=== PATIENT | female | born 1945 | race Caucasian/White ===

== ENCOUNTER → 2017-03-07 | Outpatient (CLI) | payer OTHER | END | disposition home or self-care (01) | LOC: C.LABSPEC 12:00 | PROVIDERS: ATTEND Internal Medicine | DX: Z12.11 Encounter for screening for malignant neoplasm of colon (principal) ==

== ENCOUNTER → 2017-04-04 | Outpatient (CLI) | payer OTHER | END | disposition home or self-care (01) | LOC: C.MAMM 11:13 | PROVIDERS: ATTEND Internal Medicine | DX: M85.851 Other specified disorders of bone density and structure, right thigh (principal); M85.852 Other specified disorders of bone density and structure, left thigh ==

== ENCOUNTER 2021-11-25 18:39 | Observation (INO) ==
[2021-11-25] MEDS ORDERED: SODIUM CHLORIDE 0.9% 500 ML IV ONE ×3 (18:55→20:49)
--- NOTE | 2021-11-25 18:57 | Emergency Department Note ---
Impression & Plan Atrial fibrillation with RVR, Palpitations, New onset atrial fibrillation, Low serum potassium level ED Provider Note NAME: SAMANTHA BHATTI AGE: 76 SEX: F ARRIVES VIA: Walk-In INFORMANT: Patient ED PROVIDER(S): Jason Chanel MD CHIEF COMPLAINT: Palpitations PLAN: Disposition: Admit MEDICAL DECISION MAKING: The patient is a pleasant 76-year-old woman with a past medical history of IBS who presents to the emergency department for evaluation of palpitations which she reports she noticed around 2 PM this afternoon and took her blood pressure and noticed it was more elevated than usual in the 150s. She denies any significant shortness of breath, lightheadedness, nausea or vomiting. She reports that she chronically was having loose stools which did improve with Metamucil per her doctor's instructions but every now and then depending on what she eats this may recur. She tries to keep up with nutrition and hydration but admits that she probably should've had more fluids today. She reports she did have a cough that began in October which has persisted mildly. She was tested for COVID-19 a week ago after she was informed that she may have had a COVID-19 exposure. She denies any chest pain or abdominal pain. On arrival the patient is relatively well appearing but no acute distress, afebrile with heart rate irregular ranging from the 100s-150s. Vital signs are otherwise stable. The patient appears clinically dry. Exam is otherwise unremarkable. EKG demonstrates atrial fibrillation with RVR. Chest x-ray negative for acute cardiopulmonary process. WBC, H/H and platelets within normal limits. Chemistry without metabolic ac idosis. BUN is 19 consistent with the patient's clinical dry appearance. Electrolytes and LFTs are unremarkable. Troponin negative/undetectable. TSH within normal limits. COVID-19 PCR was negative. Influenza and RSV PCR also negative. Patient was treated with IV fluid hydration with heart that did i mprove somewhat from the 140-150s to the 130s. She was then given 2.5 mg of IV Lopressor followed by an additional 2.5 mg shortly thereafter after minimal response. Her heart rate then did improve to the 100s-110s. [id number] score is 3 and so anticoagulation is warranted. Patient denies any history of GI bleeding or bleeding otherwise. Given the patient's new onset atrial fibrillation the patient was in agreement with plan for admission for further management. Will defer anticoagulation to admitting team. Case was discussed with Dr. Kang [facility] hospitalist, who will evaluate the patient for admission. Triage Nursing notes reviewed and agree them. Prior medical records reviewed Vital Signs: reviewed and remarkable for tachycardia. Differential diagnosis: Premature contractions, electrolyte abnormality, cardiac dysrhythmia, thyroid dysfunction, pulmonary embolism, infection, gastrointestinal, as well as other pathologies. ER treatment provided: See below. Diagnostics interpreted by me: ECG 185: Atrial fibrillation with RVR, 127 bpm, nonspecific ST abnormality, no overt ST elevation or depression, QTC 447, QRS 80. ECG 2126: Atrial fibrillation with RVR, 106 bpm, no ectopy, improved ST abnorma lity, no overt ST elevation or depression, QTC 379, QRS 80. Cardiac Monitoring: An order for continuous cardiac monitoring was placed and demonstrated atrial fibrillation, 150 bpm, no ectopy. Laboratory studies: See below Imaging studies: See below Consultation(s): Case was discussed with Dr. Kang [facility] hospitalist, who will evaluate the patient for admission. HPI: The patient is a pleasant 76-year-old woman with a past medical history of IBS who presents to the emergency department for evaluation of palpitations which she reports she noticed around 2 PM this afternoon and took her blood pressure and noticed it was more elevated than usual in the 150s. She denies any significant shortness of breath, lightheadedness, nausea or vomiting. She reports that she chronically was having loose stools which did improve with Metamucil per her doctor's instructions but every now and then depending on what she eats this may recur. She tries to keep up with nutrition and hydration but admits that she probably should've had more fluids today. She reports she did have a cough that began in October which has persisted mildly. She was tested for COVID-19 a week ago after she was informed that she may have had a COVID-19 exposure. She denies any chest pain or abdominal pain. ROS: See above HPI for pertinent positives & negatives. A total of 10 systems reviewed and were otherwise negative. PAST MEDICAL HISTORY:See Below PAST SURGICAL HISTORY:See Below FAMILY HISTORY:See Below SOCIAL HISTORY:See Below HOME MEDICATIONS:See Below ALLERGIES:See Below VITALS:See Below PHYSICAL EXAMINATION: GENERAL: Awake, alert, relatively well-appearing, in no distress HENT: Normocephalic, atraumatic. Oropharynx with dry mucous membranes and otherwise unremarkable. EYES: Normal conjunctiva. Sclera non-icteric. NECK: Supple. No nuchal rigidity. FROM. No JVD. RESPIRATORY: Clear to auscultation. CARDIAC: Tachycardic rate, irregular rhythm. Extremities warm and well perfused. Pulses equal. ABDOMEN: Soft, non-distended. No tenderness to palpation. No rebound or guarding. No masses. RECTAL: Deferred. MUSCULOSKELETAL: Chest examination reveals no tenderness. The back is symmetrical on inspection without obvious abnormality. There is no CVA tenderness to palpation. No joint edema. LOWER EXTREMITIES: Calves are equal size bilaterally and non-tender. No edema. No discoloration. NEURO: Normal sensorium. No sensory or motor deficits noted. SKIN: No rash or jaundice noted. ED COURSE: Critical Care: I have personally spent greater than 45 minutes of critical care time in the direct management of this patient. This includes bedside care, interpretation of diagnostic studies, and testing, discussion with consultants, patient, and family members, and other required patient management activities. This 45 minutes is in excess of all separately billable procedures. Jason Chanel MD Past Med/Surg History Medical History Axillary fullness Cystocele Diarrhea Ear pressure Finger pain, right H/O hepatitis Osteoarthritis Osteopenia Screening cholesterol level Uterine prolapse Surgical History H/O oral surgery Family History Mother Myocardial infarction Father Non Hodgkin's lymphoma Prostate cancer Skin cancer Denies family history of Ovarian cancer Breast cancer Colorectal cancer Social History Smoking Status: Never smoker Second Hand Exposure: No; Hx Alcohol Use: Yes Alcohol type: wine Hx Substance Use: No Preferred Language: Japanese Communication Ability: Effective Visual Impairment: No Limitations Hearing Ability: Normal Seal Extrusion Operator Required: No Beliefs That Will Affect Care: None marital status: Current Living Situation: Alone current occupational status: employed current occupation: Self employed Other Information That Helps Us Care for You: No Feels Safe at Home: Yes Safety Concerns: Feels Safe At This Time Childhood Exposure to Second-Hand Smoke: No Dental Care, Regularly: Yes Physical Activity Frequency: 3-4 Times per Week Seatbelt Use: always Sunscreen Use: Yes Assistive Devices: None Allergies Allergies Allergy/AdvReac Type Severity Reaction Status Date / Time Sulfa (Sulfonamide Allergy Mild Verified 11/25/21 19:18 Antibiotics) mercury (elemental) Allergy Verified 11/25/21 19:18 amoxicillin AdvReac Unknown Verified 11/25/21 19:18 procaine [From Novocain] AdvReac Unknown Verified 11/25/21 19:18 Home Meds Home Medications Medication Instructions Recorded Confirmed arbmboiwaqkm-La-zwln-minerals 1 tab PO DAILY 03/21/20 11/25/21 (Multiple Vitamin, Womens) alfalfa 650 mg tablet 0 mg PO DAILY PRN 07/02/20 11/25/21 ascorbic acid (vitamin C) 1,000 mg 0 g PO DAILY 07/02/20 11/25/21 tablet (Vitamin C) calcium carbonate 500 mg calcium 500 mg PO DAILY 07/02/20 11/25/21 (1,250 mg) tablet (Calcium 500) cholecalciferol (vitamin D3) 10 0 mcg PO DAILY 07/02/20 11/25/21 mcg (400 unit) tablet beta wdfebdwq-U-H-lutein-min #29 1 tab PO DAILY 11/25/21 11/25/21 5,000 unit-60 mg-30 unit-2 mg tablet ferrous sulfate 250 mg 0 mg PO DAILY 11/25/21 11/25/21 capsule,extended release Results & Data (ED) Vital Signs Vital Signs - 24 hr 11/25/21 18:47 11/25/21 19:09 11/25/21 20:30 Temperature 36.8 C Temperature Source Temporal Artery Scan Pulse Rate 105 H 128 H Pulse Rate [Apical] 133 H Pulse Rhythm Regular Pulse Rhythm [Apical] Irregular Pulse Strength Normal Pulse Strength [Apical] Normal Respiratory Rate 20 12 12 Respiratory Effort / Characteristics Non-Labored Respiratory Depth Normal Blood Pressure 118/75 Blood Pressure [Right Arm] 127/99 Blood Pressure Mean 89 Blood Pressure Mean [Right Arm] 108 Blood Pressure Position Sitting Pulse Oximetry 97 98 98 Oxygen Delivery Method Room Air Room Air Room Air Sepsis Recent Fever Within 48 Hours No Sepsis New/Unexplained Change in Mental Status N/A Sepsis Action Taken by Nursing No Action Required Pulse Oximetry Post Tiitration 98 11/25/21 20:38 11/25/21 20:52 Temperature Temperature Source Pulse Rate 135 H 122 H Pulse Rate [Apical] Pulse Rhythm Pulse Rhythm [Apical] Pulse Strength Pulse Strength [Apical] Respiratory Rate Respiratory Effort / Characteristics Respiratory Depth Blood Pressure 127/99 108/88 Blood Pressure [Right Arm] Blood Pressure Mean Blood Pressure Mean [Right Arm] Blood Pressure Position Pulse Oximetry Oxygen Delivery Method Sepsis Recent Fever Within 48 Hours Sepsis New/Unexplained Change in Mental Status Sepsis Action Taken by Nursing Pulse Oximetry Post Tiitration Laboratory Data Attestation: I reviewed the patient's lab results. Result diagrams: 11/25/21 19:10 11/25/21 19:10 Lab Results 11/25/21 11/25/21 11/25/21 Range/Units 19:10 19:10 19:48 WBC 6.19 (4.8-10.8) K/uL RBC 4.33 (4.2-5.4) M/uL Hgb 13.9 (12.0-16.0) g/dL Hct 42.6 (37-47) % MCV 98.4 (80-100) fL MCH 32.1 (25-34) pg MCHC 32.6 (32-36) g/dL RDW Std Deviation 46.2 (36.4-46.3) fL RDW Coeff of Jacob 12.8 (11.5-14.5) % Plt Count 248 (130-400) K/uL MPV 10.4 (7.4-10.4) fL Immature Gran % (Auto) 0.2 % Neut % (Auto) 45.2 % Lymph % (Auto) 39.6 % [place] % (Auto) 6.3 % Eos % (Auto) 8.1 % Baso % (Auto) 0.6 % Neut # (Auto) 2.80 (1.4-6.5) K/uL Lymph # (Auto) 2.45 (1.2-3.4) K/uL [place] # (Auto) 0.39 (0.11-0.59) K/uL Eos # (Auto) 0.50 (0-0.5) K/uL Baso # (Auto) 0.04 (0-0.2) K/uL Immature Gran # (Auto) 0.01 (0.00-0.02) K/uL Sodium 140 (136-145) mmol/L Potassium 3.8 (3.5-5.1) mmol/L Chloride 106 (98-107) mmol/L Carbon Dioxide 27 (21-32) mmol/L Anion Gap 7.0 (3-11) BUN 19 H (7-18) mg/dl Creatinine 1.19 (0.6-1.2) mg/dl Est Cr Clr Drug Dosing 31.7 ml/min Est GFR ( Amer) 51.0 ml/min Est GFR (Non-Af Amer) 44.0 ml/min BUN/Creatinine Ratio 15.6 (10-20) Glucose 115 H (70-99) mg/dl Calcium 9.9 (8.5-10.1) mg/dl Phosphorus 3.3 (2.5-4.9) mg/dl Magnesium 2.4 (1.8-2.4) mg/dl Total Bilirubin 0.3 (0.2-1) mg/dl AST 25 (15-37) U/L ALT 25 (12-78) Alkaline Phosphatase 73 (45-117) U/L Troponin I < 0.015 (0-0.045) ng/ml Total Protein 7.3 (6.4-8.2) gm/dl Albumin 3.6 (3.4-5.0) gm/dl Globulin 3.7 (2.5-4.0) gm/dl Albumin/Globulin Ratio 1.0 (0.9-2) Lipase 100 (73-393) U/L TSH 2.800 (0.300-4.500) uIu/ml SARS-CoV-2 (PCR) NEGATIVE (Negative) Influenza Type A (PCR) Negative (Neg) Influenza Type B (PCR) Negative (Neg) RSV (RT-PCR) Negative (Neg) Administered Medications Discontinued Medications Sodium Chloride (Nss) 500 mls @ 999 mls/hr IV .Q31M ONE Stop: 11/25/21 19:25 Last Infusion: 11/25/21 19:43 Dose: 0 mls/hr Documented by: [id number] Admin: 11/25/21 19:07 Dose: 999 mls/hr Documented by: [id number] Sodium Chloride (Nss) 500 mls @ 999 mls/hr IV .Q31M ONE Stop: 11/25/21 19:56 Last Infusion: 11/25/21 20:26 Dose: 0 mls/hr Documented by: [id number] Admin: 11/25/21 19:46 Dose: 999 mls/hr Documented by: [id number] Sodium Chloride (Nss) 500 mls @ 999 mls/hr IV .Q31M ONE Stop: 11/25/21 21:19 Last Infusion: 11/25/21 21:56 Dose: 0 mls/hr Documented by: [id number] Admin: 11/25/21 20:53 Dose: 999 mls/hr Documented by: [id number] Metoprolol Tartrate (Metoprolol Tartrate 1 Mg/Ml Vial) 2.5 mg IV NOW STA Stop: 11/25/21 20:32 Last Admin: 11/25/21 20:38 Dose: 2.5 mg Documented by: [id number] Metoprolol Tartrate (Metoprolol Tartrate 1 Mg/Ml Vial) 2.5 mg IV NOW STA Stop: 11/25/21 20:43 Last Admin: 11/25/21 20:52 Dose: 2.5 mg Documented by: [id number] Metoprolol Tartrate (Metoprolol Tartrate 50 Mg Tab) 25 mg PO NOW STA Stop: 11/25/21 22:13 Last Admin: 11/25/21 22:58 Dose: 25 mg Documented by: [id number] Potassium Chloride (Potassium Chloride Crtab 20 Meq Tabcr) 40 meq PO NOW STA Stop: 11/25/21 23:40 Last Admin: 11/26/21 00:31 Dose: 40 meq Documented by: [id number] Imaging Data Radiologist's Impression: Chest X-Ray 11/25/21 18:55 XR chest 1V portable CLINICAL HISTORY: Atypical chest pain TECHNIQUE: Single frontal radiograph of the chest was obtained. Comparison: Comparison is made to chest one view 07/02/2020 FINDINGS: No lines and tubes are seen. The cardiomediastinal silhouette is normal. The lungs are clear. No evidence of pleural effusion or pneumothorax. IMPRESSION: No acute chest disease. ACT 112: Negative or not required by law. Electronically signed by: Andrey Francisco M.D. 11/25/2021 7:26 PM Discharge Plan Visit Data Chief Complaint: Tachycardia Stated Complaint: HBP LOWER NUMBER 100, PULSE OVER 100 ED Provider: Jason Chanel Discharge Problem: Atrial fibrillation with RVR, Palpitations, New onset atrial fibrillation, Low serum potassium level Patient Disposition: Admitted As Inpatient Discharge Instructions Interventions: ED Discharge Assessment Last Done: 11/26/21 00:45
--- NOTE | 2021-11-25 19:27 | XRay Report ---
XR chest 1V portable CLINICAL HISTORY: Atypical chest pain TECHNIQUE: Single frontal radiograph of the chest was obtained. Comparison: Comparison is made to chest one view 07/02/2020 FINDINGS: No lines and tubes are seen. The cardiomediastinal silhouette is normal. The lungs are clear. No evid ence of pleural effusion or pneumothorax. IMPRESSION: No acute chest disease. ACT 112: Negative or not required by law. Electronically signed by: Andrey Francisco M.D. 11/25/2021 7:26 PM
[2021-11-25 19:29] LABS: Basophils # (auto) 0.04 K/uL (0-0.2); Basophils % (auto) 0.6 %; Eosinophils % (auto) 8.1 %; Hematocrit (blood only) 42.6 % (37-47); Hemoglobin 13.9 g/dL (12.0-16.0); Immature Granulocytes # (auto) 0.01 K/uL (0.00-0.02); Immature Granulocytes % (auto) 0.2 %; Lymphocytes # (auto) 2.45 K/uL (1.2-3.4); Lymphocytes % (auto) 39.6 %; Mean Corpuscular Hemoglobin 32.1 pg (25-34); Mean Corpuscular Hgb Conc 32.6 g/dL (32-36); Mean Corpuscular Volume 98.4 fL (80-100); Mean Platelet Volume 10.4 fL (7.4-10.4); Monocytes # (auto) 0.39 K/uL (0.11-0.59); Monocytes % (auto) 6.3 %; Neutrophils % (auto) 45.2 %; Platelet Count 248 K/uL (130-400); RDW Coefficient of Variation 12.8 % (11.5-14.5); RDW Standard Deviation 46.2 fL (36.4-46.3); Red Blood Count 4.33 M/uL (4.2-5.4); White Blood Count 6.19 K/uL (4.8-10.8)
[2021-11-25 19:47] LABS: Albumin Level 3.6 gm/dl (3.4-5.0); Aspartate Aminotransferase 25 U/L (15-37); BUN Creatinine Ratio 15.6 (10-20); Blood Urea Nitrogen 19 mg/dl (7-18); Calcium 9.9 mg/dl (8.5-10.1); Carbon Dioxide 27 mmol/L (21-32); Chloride 106 mmol/L (98-107); Creatinine Clr Calc Pharmacy 31.7 ml/min; Glucose 115 mg/dl (70-99); Lipase 100 U/L (73-393); Magnesium 2.4 mg/dl (1.8-2.4); Potassium 3.8 mmol/L (3.5-5.1); Sodium 140 mmol/L (136-145)
[2021-11-25 19:59] LABS: Alanine Aminotransferase 25 (12-78); Alkaline Phosphatase 73 U/L (45-117); Globulin 3.7 gm/dl (2.5-4.0); Phosphorus 3.3 mg/dl (2.5-4.9); Total Protein 7.3 gm/dl (6.4-8.2); Troponin I < 0.015 ng/ml (0-0.045)
[2021-11-25 20:27] LABS: Bilirubin,Total 0.3 mg/dl (0.2-1)
[2021-11-25] MEDS ORDERED: METOPROLOL TARTRATE 1 MG/ML VIAL IV STA ×2 (20:31→20:42)
[2021-11-25 20:40] LABS: Influenza A virus by PCR Negative (Neg); Influenza B virus by PCR Negative (Neg); RSV by PCR Negative (Neg); SARS CoV2 RNA(COVID-19) InHosp NEGATIVE (Negative)
[2021-11-25] MEDS ORDERED: METOPROLOL TARTRATE 50 MG TAB PO STA (22:12)
[2021-11-25] MEDS ORDERED: METOPROLOL TARTRATE 1 MG/ML VIAL IV PRN (23:37)
[2021-11-25] MEDS ORDERED: POTASSIUM CHLORIDE CRTAB 20 MEQ TABCR PO STA (23:39)
--- NOTE | 2021-11-25 23:48 | History & Physical Report ---
Date of Service November 25, 2021 Assessment & Plan (1) Atrial fibrillation with RVR: Plan: Haley Mckeon is a 76y/o F w/ PMH significant for irritable bowel syndrome, who presents for concerns of tachycardia and palpitations started earlier today. A. fib with RVR: -EKG demonstrating A. fib with RVR on presentation to ED -Heart rate improved following second administration of IV Lopressor in ED -Continue to monitor on telemetry overnight -[id number] of 3 indicating likely need for anticoagulation (points based off of patient age and gender) -Troponin negative x1 -TSH normal -A1c in a.m. -Lipid profile in a.m. -Echo in a.m. -5 mg IV Lopressor as needed for HR> 110 -Start Eliquis 5 mg BID CODE STATUS: Full code DVT prophylaxis: Eliquis Diet: Heart healthy; NSS @ 80mL/h History of Present Illness Primary Care Provider: Doris Snell MD Haley Mckeon is a 76y/o F w/ PMH significant for irritable bowel syndrome, who presents for concerns of tachycardia and palpitations started earlier today. Earlier this afternoon she noticed that she was having these palpitations and took her blood pressure which she noticed was significantly more elevated than normal and she had a fast heart rate at that time. Was not having any chest pain, lightheadedness, nausea, vomiting, shortness of breath, or abdominal pain throughout this time. Does have regular occasionally when she has loose stools but this was not occurring. In the ED had EKG did demonstrated atrial fibrillation with rapid ventricular rate, had minimal response to 2.5 mg of IV Lopressor x2 with slight improvement in blood pressure as well as in heart rate. Given concern for persistent tachycardia and in the setting of potential need for initiation on anticoagulation she was admitted to the hospital. Allergies Allergy/AdvReac Type Severity Reaction Status Date / Time Sulfa (Sulfonamide Allergy Mild Verified 11/25/21 19:18 Antibiotics) mercury (elemental) Allergy Verified 11/25/21 19:18 amoxicillin AdvReac Unknown Verified 11/25/21 19:18 procaine [From Novocain] AdvReac Unknown Verified 11/25/21 19:18 Home Medications Medication Instructions Recorded Confirmed Type pyrueyxoonha-Bo-fnjk-minerals 1 tab PO DAILY 03/21/20 11/25/21 History (Multiple Vitamin, Womens) alfalfa 650 mg tablet 0 mg PO DAILY PRN 07/02/20 11/25/21 History ascorbic acid (vitamin C) 1,000 mg 0 g PO DAILY 07/02/20 11/25/21 History tablet (Vitamin C) calcium carbonate 500 mg calcium 500 mg PO DAILY 07/02/20 11/25/21 History (1,250 mg) tablet (Calcium 500) cholecalciferol (vitamin D3) 10 0 mcg PO DAILY 07/02/20 11/25/21 History mcg (400 unit) tablet beta xwmqibzk-D-K-lutein-min #29 1 tab PO DAILY 11/25/21 11/25/21 History 5,000 unit-60 mg-30 unit-2 mg tablet ferrous sulfate 250 mg 0 mg PO DAILY 11/25/21 11/25/21 History capsule,extended release apixaban 5 mg tablet 5 mg PO BID #60 tab 11/26/21 Rx Past Med/Surg History Medical History Axillary fullness Cystocele Diarrhea Ear pressure Finger pain, right H/O hepatitis Osteoarthritis Osteopenia Screening cholesterol level Uterine prolapse Surgical History H/O oral surgery Family History Mother Myocardial infarction Father Non Hodgkin's lymphoma Prostate cancer Skin cancer Denies family history of Ovarian cancer Breast cancer Colorectal cancer Social History Smoking Status: Never smoker Second Hand Exposure: No; Hx Alcohol Use: Yes Alcohol type: wine Hx Substance Use: No Preferred Language: Trinidadian Communication Ability: Effective Visual Impairment: No Limitations Hearing Ability: Normal [place] Former Machine Required: No Beliefs That Will Affect Care: None marital status: Current Living Situation: Alone current occupational status: employed current occupation: Self employed Feels Safe at Home: Yes Childhood Exposure to Second-Hand Smoke: No Dental Care, Regularly: Yes Physical Activity Frequency: 3-4 Times per Week Seatbelt Use: always Sunscreen Use: Yes Assistive Devices: None Review of Systems Review of Systems: All systems reviewed & are unremarkable except as noted in HPI & below Physical Exam Constitutional: WD/WN, vitals as above Eyes: PERRL, conjunctivae normal, anicteric sclerae Respiratory: normal respiratory effort, lungs clear to auscultation Auscultation: no crackles, no rales, no rhonchi and no wheezes Cardiovascular: Rate/Rhythm: + irregularly irregular Heart Sounds: no gallop, no murmur and no cardiac rub Vessels: normal peripheral pulses; no JVD Extremities: no edema Gastrointestinal (Abdomen): Inspection/Auscultation: normal bowel sounds; abdomen not distended Percussion/Palpation: abdomen soft; abdomen nontender and no guarding Musculoskeletal: no cyanosis or clubbing, extremities motor strength 5/5 Skin: no rashes, warm and dry Neurologic: PERRL, EOMI, accommodation nl, no face palsy, no dysarthria CN's II-XI intact bilaterally and moves all extremities Psychiatric: Orientation: alert and oriented x 3 Results & Data Results & Data ([facility]) Vital Signs (Past 12 Hours) Vital Signs Temp Pulse Pulse Resp BP BP Pulse Ox 11/25/21 20:52 122 H 108/88 11/25/21 20:38 135 H 127/99 11/25/21 20:30 133 H 12 127/99 98 11/25/21 19:09 128 H 12 98 11/25/21 18:47 36.8 C 105 H 20 118/75 97 Laboratory Results 11/25/21 11/25/21 11/25/21 Range/Units 19:48 19:10 19:10 WBC 6.19 (4.8-10.8) K/uL RBC 4.33 (4.2-5.4) M/uL Hgb 13.9 (12.0-16.0) g/dL Hct 42.6 (37-47) % MCV 98.4 (80-100) fL MCH 32.1 (25-34) pg MCHC 32.6 (32-36) g/dL RDW Std Deviation 46.2 (36.4-46.3) fL RDW Coeff of Jacob 12.8 (11.5-14.5) % Plt Count 248 (130-400) K/uL MPV 10.4 (7.4-10.4) fL Immature Gran % (Auto) 0.2 % Neut % (Auto) 45.2 % Lymph % (Auto) 39.6 % [place] % (Auto) 6.3 % Eos % (Auto) 8.1 % Baso % (Auto) 0.6 % Neut # (Auto) 2.80 (1.4-6.5) K/uL Lymph # (Auto) 2.45 (1.2-3.4) K/uL [place] # (Auto) 0.39 (0.11-0.59) K/uL Eos # (Auto) 0.50 (0-0.5) K/uL Baso # (Auto) 0.04 (0-0.2) K/uL Immature Gran # (Auto) 0.01 (0.00-0.02) K/uL Sodium 140 (136-145) mmol/L Potassium 3.8 (3.5-5.1) mmol/L Chloride 106 (98-107) mmol/L Carbon Dioxide 27 (21-32) mmol/L Anion Gap 7.0 (3-11) BUN 19 H (7-18) mg/dl Creatinine 1.19 (0.6-1.2) mg/dl Est Cr Clr Drug Dosing 31.7 ml/min Est GFR ( Amer) 51.0 ml/min Est GFR (Non-Af Amer) 44.0 ml/min BUN/Creatinine Ratio 15.6 (10-20) Glucose 115 H (70-99) mg/dl Calcium 9.9 (8.5-10.1) mg/dl Phosphorus 3.3 (2.5-4.9) mg/dl Magnesium 2.4 (1.8-2.4) mg/dl Total Bilirubin 0.3 (0.2-1) mg/dl AST 25 (15-37) U/L ALT 25 (12-78) Alkaline Phosphatase 73 (45-117) U/L Troponin I < 0.015 (0-0.045) ng/ml Total Protein 7.3 (6.4-8.2) gm/dl Albumin 3.6 (3.4-5.0) gm/dl Globulin 3.7 (2.5-4.0) gm/dl Albumin/Globulin Ratio 1.0 (0.9-2) Lipase 100 (73-393) U/L TSH 2.800 (0.300-4.500) uIu/ml SARS-CoV-2 (PCR) NEGATIVE (Negative) Influenza Type A (PCR) Negative (Neg) Influenza Type B (PCR) Negative (Neg) RSV (RT-PCR) Negative (Neg) Diagnostic Findings Impressions Chest X-Ray 11/25/21 18:55 XR chest 1V portable CLINICAL HISTORY: Atypical chest pain TECHNIQUE: Single frontal radiograph of the chest was obtained. Comparison: Comparison is made to chest one view 07/02/2020 FINDINGS: No lines and tubes are seen. The cardiomediastinal silhouette is normal. The lungs are clear. No evidence of pleural effusion or pneumothorax. IMPRESSION: No acute chest disease. ACT 112: Negative or not required by law. Electronically signed by: Andrey Francisco M.D. 11/25/2021 7:26 PM Medications Administered Home Medication List Medication Instructions Recorded ouvbpfnhficr-Sz-tvcj-minerals 1 tab PO DAILY 03/21/20 (Multiple Vitamin, Womens) alfalfa 650 mg tablet 0 mg PO DAILY PRN 07/02/20 ascorbic acid (vitamin C) 1,000 mg 0 g PO DAILY 07/02/20 tablet (Vitamin C) calcium carbonate 500 mg calcium 500 mg PO DAILY 07/02/20 (1,250 mg) tablet (Calcium 500) cholecalciferol (vitamin D3) 10 0 mcg PO DAILY 07/02/20 mcg (400 unit) tablet beta epaiegsl-M-Y-lutein-min #29 1 tab PO DAILY 11/25/21 5,000 unit-60 mg-30 unit-2 mg tablet ferrous sulfate 250 mg 0 mg PO DAILY 11/25/21 capsule,extended release Code Status & VTE Plan VTE Prophylaxis Plan VTE Prophylaxis will be ordered: Yes Supervising Physician Co-Signing Physician Notes Attending addendum: I have physically seen this patient, have supervised the medical residents activities, and agree with the H&P unless as otherwise noted. Assessment and Plan: Atrial fibrillation with RVR- The patient will be admitted to telemetry for serial cardiac enzymes, serial EKG's, cardiac rhythm monitoring and a 2-D echocardiogram with Dopplers. Continue apixaban Lopressor 5 mg IV every 4 hours as needed heart rate greater than 110 Consult cardiology, [id number] score of 3. Remaining orders and notations as noted Resident Activity Tracking Resident Involvement: Resident Care Provided Care Provided: Adult [facility]
[2021-11-26] MEDS ORDERED: ACETAMINOPHEN 325 MG TAB PO PRN (00:49)
[2021-11-26] MEDS ORDERED: ONDANSETRON INJ 2 MG/ML 2 ML VIAL IV PRN (00:49)
[2021-11-26] MEDS ORDERED: SODIUM CHLORIDE 0.9% 1000ML 1,000 ML IV SCH (01:00)
[2021-11-26 07:03] LABS: Basophils # (auto) 0.03 K/uL (0-0.2); Basophils % (auto) 0.5 %; Eosinophils # (auto) 0.42 K/uL (0-0.5); Eosinophils % (auto) 7.5 %; Hematocrit (blood only) 39.2 % (37-47); Hemoglobin 12.5 g/dL (12.0-16.0); Immature Granulocytes # (auto) 0.01 K/uL (0.00-0.02); Immature Granulocytes % (auto) 0.2 %; Lymphocytes # (auto) 2.52 K/uL (1.2-3.4); Lymphocytes % (auto) 44.8 %; Mean Corpuscular Hemoglobin 31.7 pg (25-34); Mean Corpuscular Hgb Conc 31.9 g/dL (32-36); Mean Corpuscular Volume 99.5 fL (80-100); Mean Platelet Volume 10.1 fL (7.4-10.4); Monocytes # (auto) 0.53 K/uL (0.11-0.59); Monocytes % (auto) 9.4 %; Neutrophils # (auto) 2.11 K/uL (1.4-6.5); Neutrophils % (auto) 37.6 %; Platelet Count 243 K/uL (130-400); RDW Coefficient of Variation 12.8 % (11.5-14.5); Red Blood Count 3.94 M/uL (4.2-5.4); White Blood Count 5.62 K/uL (4.8-10.8)
[2021-11-26 07:36] LABS: Albumin Globulin Ratio 0.9 (0.9-2); Albumin Level 2.9 gm/dl (3.4-5.0); BUN Creatinine Ratio 17.3 (10-20); Calcium 8.6 mg/dl (8.5-10.1); Creatinine Clr Calc Pharmacy 44.3 ml/min; Est GFR (African American) 73.5 ml/min; Est GFR (Non-African American) 63.4 ml/min; Globulin 3.3 gm/dl (2.5-4.0); Total Protein 6.2 gm/dl (6.4-8.2); Troponin I 0.039 ng/ml (0-0.045)
[2021-11-26 07:55] LABS: Bilirubin,Total 0.4 mg/dl (0.2-1)
[2021-11-26] MEDS ORDERED: FERROUS SULFATE 325 MG TAB PO SCH (09:00)
[2021-11-26] MEDS ORDERED: APIXABAN 5 MG TABLET PO SCH (09:00)
[2021-11-26] MEDS ORDERED: CHOLECALCIFEROL 1,000 UNITS 25 MCG TAB PO SCH (09:00)
[2021-11-26] MEDS ORDERED: CALCIUM CARBONATE 1250MG TAB PO SCH (09:00)
[2021-11-26] MEDS ORDERED: MULTIVITAMIN TAB PO SCH (09:00)
--- NOTE | 2021-11-26 10:54 | XCELERA ---
[id number]
--- NOTE | 2021-11-26 18:32 | Discharge Summary ---
Date of Service November 26, 2021 Admission HPI Per Admitting Provider Haley Mckeon is a 76y/o F w/ PMH significant for irritable bowel syndrome, who presents for concerns of tachycardia and palpitations started earlier today. Earlier this afternoon she noticed that she was having these palpitations and took her blood pressure which she noticed was significantly more elevated than normal and she had a fast heart rate at that time. Was not having any chest pain, lightheadedness, nausea, vomiting, shortness of breath, or abdominal pain throughout this time. Does have regular occasionally when she has loose stools but this was not occurring. In the ED had EKG did demonstrated atrial fibrillation with rapid ventricular rate, had minimal response to 2.5 mg of IV Lopressor x2 with slight improvement in blood pressure as well as in heart rate. Given concern for persistent tachy cardia and in the setting of potential need for initiation on anticoagulation she was admitted to the hospital. Principal Diagnosis new afib - initially RVR now back to NSR Discharge Exam gen aao pleasant nad heent nc at [facility] cardio now NSR ~60. breathing unlabored no accessory muscles good effort skin no rashes no pallor or icterus. neuro shows cn 2-12 grossly intact gross motor intact. Discharge Data Allergies Allergy/AdvReac Type Severity Reaction Status Date / Time Sulfa (Sulfonamide Allergy Mild Verified 11/25/21 19:18 Antibiotics) mercury (elemental) Allergy Verified 11/25/21 19:18 amoxicillin AdvReac Unknown Verified 11/25/21 19:18 procaine [From Novocain] AdvReac Unknown Verified 11/25/21 19:18 Consultations 11/25/21 21:50 ED Decision to Admit Stat Hospital Course (1) New onset atrial fibrillation: echo w only mild MR, TSH normal rate now controlled (converted to NSR) and sinus rates low enough that beta sergey would likely be more harm than good - asked to follow HR ~daily to BID and f/u PCP -CHADS-Vasc 3 -- eliquis (extensive discussion on risk/benefit) safe/stable for home, f/u PCP Total Time Total Time Spent Total Time Spent (In Minutes): >30 Discharge Plan Discharge Items Patient Disposition: Home - Self-Care Reason For Visit: ATRIAL FIB WITH RVR Discharge Diagnosis: Atrial fibrillation (see below) Activity: Resume your previous activity Non-emergency contact: Primary Care Provider Call non-emergency contact if: you have any medication questions and your symptoms worsen Follow-up/Referrals: Doris Snell MD [Primary Care Provider] - Diet: Regular Addtl Attending Provider Instructions: Atrial fibrillation -As we discussed, atrial fibrillation happens whenever the top part of the heart's electricity system starts to breakdown. Instead of the electricity traveling through "wires" in an organized fashion, the electricity instead jumps from cell to cell. This erratic "jumping" of electricity makes it so that the top part of the heart (the atria) quiver rather than contract. This quivering creates as much is 100 signals per second bombarded in the ventricles and (the main pumping chamber). A "breaker box" called the AV node filters most of that electricity, protecting the ventricles from racing too fast, but still atrial fibrillation can cause the heart to race as high as 150-160 sometimes. -What seems to have gotten your attention was your heart racing inappropriately fast. As we discussed, most people who have A. fib have been going in and out of it for quite a while without knowing itas very frequently episodes of A. fib are totally asymptomatic, unless the rates really start to go too fast -Fortunately you have converted into a regular rhythm, and your heart rates are very well controlledto that end, while we frequently start patients with atrial fibrillation on medicines to keep the rate slow, I suspect right now that would cause you more problems than benefit, given that your heart rates are already in the 60s. Instead, what I would ask you to do is to check your pulse once or twice a day, and more frequently if you feel any symptoms. Write these numbers down and review with Dr. Parmar. If it seems like you are having much, if any, racing, then Dr. Parmar can talk to you about either putting you on a low-dose of a medicine to keep the heart rate under control, or sometimes we will simply utilize a rate controlling medicine "as needed" when the heart rates are inappropriately high. -As we discussed, atrial fibrillation often "confuses" the heart rate detectors in a blood pressure cuff or a pulse oximeterand so you should probably check "manually" -In addition to the risk of heart racing, the other problem with atrial f ibrillation and stroke risk. Because the atria are quivering rather than feliz, this allows a stagnant pond to form, and and that stagnant pond clots can form. When those clots flow down to the ventricles, they get squeezed out to the bodyand typically the "straight is shot" from the ventricle is the brain. Since atrial fibrillation clots tend to be rather large, strokes from A. fib can be devastating. As we discussed, doing the math for your risk profile, your risk of having a stroke as it relates to atrial fibrillation is about 3% in any given year. While this is not an overwhelming risk on any given day, over time it adds up. To that end, for the huge majority of atrial fibrillation patients, it is safe for her to be on a blood thinnerthe blood thinner takes the stroke risk almost to zero. -Of course the downside of being on a blood thinner is an increased chance of bleeding, but again the overall risk/benefit is generally strongly in favor of having patients with atrial fibrillation on a blood thinner. The reasons for this are many: The risk of serious bleeds is actually fairly low, most bleeds are far easier to take care of, and most atrial fibrillation strokes lead to permanent brain damage/ brain cells and permanent impairment that we are not able to fix. -We will send you with a prescription for Eliquisthis tends to be a very safe overall blood thinner, with much less risk of overall bleeding (compared to the "traditional" blood thinner Coumadin), and if there is bleeding, it is more likely to be gastrointestinal than anywhere else (which as we discussedwhile I do not mean to sound crass or cavalier, tend to be fairly easy to take care of). -The most common bleeding trouble that we do see on blood thinners fits far more into the category of "nuisance bleeding". These would be things like when you have a nosebleed it might take 10 minutes of pressure to get it to stop, or if you cut your finger in the kitchen, it might take 10 minutes of pressure to get the bleeding to stop. The sort of things do happen more often on the blood thinner, but again remember that the whole point of being on the blood thinners to protect your brain from a stroke. Is a reasonable rule for safety, if you have any bleeding that you can put pressure on, put pressure on it and then look at the clock. If it does not respond to 10 minutes of pressure, then it would be worth getting seen (the nosebleed might need packed or cauterized, the cut finger might need a stitch in it). This rule of safety also protect you because if it is bleeding that you cannot put pressure on (such as pooping blood or vomiting blood) then you know to come straight in for evaluation. -The ultrasound of your heart looked very reassuringshe had a very mildly leaky mitral valve, but nothing that is probably causing you much trouble. -Follow-up with Dr Parmar next week to review how your heart rates are doing, and how you are doing adjusting with everything. Pending Studies at Discharge: No Stand-Alone Forms: [facility], Smoking Cessation Medications and DC Order Prescriptions: New apixaban 5 mg tablet 5 mg PO BID Qty: 60 RF: 0 Continued Multiple Vitamin, Womens Tablet 1 tab PO DAILY RF: 0 ascorbic acid (vitamin C) [Vitamin C] 1,000 mg Tablet 0 g PO DAILY RF: 0 calcium carbonate [Calcium 500] 500 mg calcium (1,250 mg) Tablet 500 mg PO DAILY RF: 0 alfalfa 650 mg Tablet 0 mg PO DAILY PRN (Reason: Unknown) RF: 0 cholecalciferol (vitamin D3) 10 mcg (400 unit) Tablet 0 mcg PO DAILY RF: 0 ferrous sulfate 250 mg Capsule, Extended Release 0 mg PO DAILY RF: 0 beta [id number]-A-lutein-min29 5,000-60-30-2 mfdg-ff-itbs-mg Tablet 1 tab PO DAILY RF: 0 Discharge Orders: Discharge Order (Routine); Ordered 11/26/21 Ordered By: Jame Ribera Admission Data Admit Date/Time: 11/25/21 23:34 Attending Provider: Jame Ribera Admit Provider: Marin Kang Primary Care Provider: Doris Snell V. Other Providers: Marin Kang Other Interventions: Discharge Summary Assessment (RN) Last Done: 11/26/21 14:26 Coding Level of Care Code 13205 OBS Care - Discharge Diagnoses New onset atrial fibrillation I48.91
--- NOTE | 2021-11-27 01:06 | Billing Data ---
Date of Service November 27, 2021 Coding Level of Care Code INT OBSERVATION CARE 70M LVL 3
--- NOTE | 2021-11-27 05:48 | Electrocardiogram Report ---
Test Reason : Blood Pressure : / mmHG Vent. Rate : 127 BPM Atrial Rate : 100 BPM P-R Int : 000 ms QRS Dur : 080 ms QT Int : 308 ms P-R-T Axes : 000 031 046 degrees QTc Int : 447 ms Atrial fibrillation with rapid ventricular response Nonspecific ST abnormality Abnormal ECG No previous ECGs available Confirmed by Evangelist Hedrick ([id number]) on 11/27/2021 5:48:05 AM Referred By: REFERRED SELF Confirmed By:Evangelist Hedrick
--- NOTE | 2021-11-27 05:52 | Electrocardiogram Report ---
Test Reason : Blood Pressure : / mmHG Vent. Rate : 106 BPM Atrial Rate : 059 BPM P-R Int : 000 ms QRS Dur : 080 ms QT Int : 286 ms P-R-T Axes : 000 023 032 degrees QTc Int : 379 ms Atrial fibrillation with rapid ventricular response Abnormal ECG When compared with ECG of 25-NOV-2021 18:55, ST no longer depressed in Inferolateral leads Confirmed by Evangelist Hedrick ([id number]) on 11/27/2021 5:51:48 AM Referred By: REFERRED SELF Confirmed By:Evangelist Hedrick
--- NOTE | 2021-11-27 06:03 | Electrocardiogram Report ---
Test Reason : Blood Pressure : / mmHG Vent. Rate : 053 BPM Atrial Rate : 053 BPM P-R Int : 176 ms QRS Dur : 068 ms QT Int : 414 ms P-R-T Axes : 034 031 031 degrees QTc Int : 388 ms Poor data quality, interpretation may be adversely affected Sinus bradycardia When compared with ECG of 25-NOV-2021 21:27, Sinus rhythm has replaced Atrial fibrillation Vent. rate has decreased BY 53 BPM Confirmed by Evangelist Hedrick ([id number]) on 11/27/2021 6:02:33 AM Referred By: REFERRED SELF Confirmed By:Evangelist Hedrick
[2021-11-27 07:29] LABS: Estimated Average Glucose 128 mg/dl; Hemoglobin A1C 6.1 % (4.5-5.6)
== END 2021-11-26 14:50 | disposition home or self-care (01) ==
LOC: 2S 18:39 → ED 18:39 → SUATTDRO 23:34 → 2S 11-26 00:45